=== PATIENT | female | born 1965 | race Caucasian/White ===

== ENCOUNTER 2018-05-19 08:17 | Day surgery (SDC) | payer BC ==
[~2018-05-19] VITALS: Ht 160 cm; Wt 62.6 kg
[2018-05-19] MEDS ORDERED: LEVOFLOXACIN 500 MG/D5W 100 ML IV ONE (09:30)
[2018-05-19] MEDS ORDERED: ATROPINE SULFATE 0.4 MG/ML VIAL IVP ONE (12:15)
[2018-05-19] MEDS ORDERED: ROPIVACAINE HCL/PF 0.2% (NAROPIN) 200 ML PLAST..BAG EP ONE (12:15)
[2018-05-19] MEDS ORDERED: DEXTROSE 50% JECT 50 ML DISP.SYRIN IVP ONE (12:15)
[2018-05-19] MEDS ORDERED: MIDAZOLAM HCL 5 MG/5 ML VIAL IVP ONE (12:15)
[2018-05-19] MEDS ORDERED: ONDANSETRON HCL 4 MG/2 ML VIAL IVP ONE (12:15)
[2018-05-19] MEDS ORDERED: fentaNYL CITRATE 250 MCG/5 ML AMP IV ONE (12:15)
[2018-05-19] MEDS ORDERED: LR 1,000 ML IV.SOLN IV ONE (12:15)
[2018-05-19] MEDS ORDERED: FUROSEMIDE 20 MG/2 ML VIAL IVP ONE (12:15)
[2018-05-19] MEDS ORDERED: BUPIVACAINE /EPINEPHRINE/PF 0.25% 30 ML VIAL INJ ONE (12:15)
[2018-05-19] MEDS ORDERED: BUPIVACAINE /PF 0.25% 30 ML VIAL INJ ONE (12:15)
[2018-05-19] MEDS ORDERED: SEVOFLURANE 15 MIN GAS INH ONE (12:15)
[2018-05-19] MEDS ORDERED: PROPOFOL 200MG/ 20ML VIAL (DIPRIVAN) IV ONE (12:15)
[2018-05-19] MEDS ORDERED: NS 1000 ML IV.SOLN IV ONE (12:15)
[2018-05-19] MEDS ORDERED: ROPIVACAINE HCL/PF 5 MG/ML 0.5% 30 ML VIAL INJ ONE (12:15)
[2018-05-19] MEDS ORDERED: KETOROLAC TROMETHAMINE 30 MG VIAL IVP ONE ×3 (12:15→16:45)
[2018-05-19] MEDS ORDERED: WATER FOR IRRIGATION,STERILE 1,000 ML IRRIG.SOLN IR ONE (12:15)
[2018-05-19] MEDS ORDERED: ROCURONIUM BROMIDE 10 MG/ML (ZEMURON) IV ONE (12:15)
[2018-05-19] MEDS ORDERED: POLYMYXIN 500,000/BACIT.10,000 UNITS in NS IRR 1 L IR ONE (13:31)
[2018-05-19] MEDS ORDERED: ONDANSETRON HCL 4 MG/2 ML VIAL IVP PRN (15:00)
[2018-05-19] MEDS ORDERED: HYDROcodone/ACETAMIN 5-325 MG TAB (NORCO/ VICODIN) PO PRN (15:00)
[2018-05-19] MEDS ORDERED: OXYCODONE/ACETAMINOPHEN 5-325 TABLET PO PRN ×2 (15:00)
[2018-05-19 16:00] VITALS: BP_SYST 118
[2018-05-19] MEDS ORDERED: KETOROLAC TROMETHAMINE 30 MG VIAL ONE (16:25)
== END 2018-05-19 17:40 | disposition home or self-care (01) ==
LOC: SDS 08:17 → SMU 08:17 → SDS 17:40
PROVIDERS: ATTEND Specialist
DX: D25.9 Leiomyoma of uterus, unspecified (principal); N83.8 Other noninflammatory disorders of ovary, fallopian tube and broad ligament; N80.1 Endometriosis of ovary; K58.9 Irritable bowel syndrome, unspecified; Z79.899 Other long term (current) drug therapy; Z98.890 Other specified postprocedural states; Z88.8 Allergy status to other drugs, medicaments and biological substances
CPT/HCPCS: 58542; 64488; 88307; C1727; C1781; J0461; J1885; J1940; J1956; J2250; J2405; J2704; J3010; J3490 ×2; J7030; J7120; E0190